=== PATIENT | female | born 1980 | race Hispanic/Latino ===

== ENCOUNTER 2017-09-04 20:44 | Inpatient (IN) | payer OTHER ==
[2017-09-04] MEDS ORDERED: Sodium Chloride 0.9% 1,000 ML IV STA (21:55)
[2017-09-04 22:19] LABS: BASO # 0.1 K/uL (0.0-0.2); BASO % 0.5 % (0.0-2.0); EOS % 0.1 % (0.0-4.0); HEMOGLOBIN 13.7 g/dL (12.0-16.0); LYMPH # 0.6 K/uL (1.0-4.3); LYMPH % 4.3 % (20.0-40.0); MEAN CELL VOLUME 92.5 fl (81.0-99.0); MEAN CORPUSCULAR HEMOGLOBIN 31.5 pg (27.0-31.0); MEAN CORPUSCULAR HGB CONC 34.1 g/dL (33.0-37.0); MONO # 0.7 K/uL (0.0-0.8); MONO % 5.1 % (0.0-10.0); NEUT # 13.2 K/uL (1.8-7.0); PLATELET COUNT 168 K/uL (130-400); RBC 4.35 Mil/uL (3.80-5.20); RED CELL DISTRIBUTION WIDTH 12.2 % (11.5-14.5); WHITE BLOOD COUNT 14.6 K/uL (4.8-10.8)
[2017-09-04 22:28] LABS: ALB/GLOB RATIO 1.3 (1.0-2.1); ALBUMIN 4.5 g/dL (3.5-5.0); ALT/SGPT 27 U/L (9-52); AST/SGOT 27 U/L (14-36); BLOOD UREA NITROGEN 5 mg/dl (7-17); CALCIUM 9.2 mg/dL (8.4-10.2); GFR AFRICAN-AMERICAN > 60; GFR NON-AFRICAN AMERICAN > 60; LIPASE 56 U/L (23-300)
[2017-09-04] MEDS ORDERED: Sodium Chloride 0.9% 100 ML ONE (22:35)
[2017-09-04] MEDS ORDERED: Iohexol 300 100 ML IJ ONE (22:35)
--- NOTE | 2017-09-04 22:54 | ED PDOC ---
HPI: Abdomen Time Seen by Provider: 09/04/17 21:11 Chief Complaint (Nursing): Abdominal Pain Chief Complaint (Provider): Periumbilical Pain History Per: Patient History/Exam Limitations: no limitations Onset/Duration Of Symptoms: Days (x2) Current Symptoms Are (Timing): Still Present Location Of Pain/Discomfort: Periumbilical Associated Symptoms: Diarrhea. denies: Loss Of Appetite Additional Complaint(s): 36 year old female presents to the ED complaining of gradual onset of constant crampy periumbilical pain associated with diarrhea which started 3 days ago after she ate samosas. Patient states that the diarrhea has since subsided, however the pain now radiates to the right groin area. Patient states she has a normal appetite. She went to [facility] today and was told she may have gastroenteritis. Denies fever, nausea, vomiting, urinary symptoms, vaginal discharge, or vaginal bleeding. Reports no h/o abdominal surgery. PMD: in [facility] Past Medical History Reviewed: Historical Data, Nursing Documentation, Vital Signs Vital Signs: Last Vital Signs Temp 100.9 F H 09/05/17 02:15 Pulse 97 H 09/05/17 02:15 Resp 20 09/05/17 02:15 BP 112/55 L 09/05/17 02:15 Pulse Ox 97 09/05/17 02:15 - Medical History Other PMH: on OCPs - Surgical History Surgical History: No Surg Hx - Family History Family History: States: Unknown Family Hx - Home Medications Home Medications: Ambulatory Orders Medication Instructions Recorded No Known Home Med 09/05/17 - Allergies Allergies/Adverse Reactions: Allergies Allergy/AdvReac Type Severity Reaction Status Date / Time No Known Allergies Allergy Verified 09/04/17 20:49 Review of Systems ROS Statement: Except As Marked, All Systems Reviewed And Found Negative Constitutional: Negative for: Fever Gastrointestinal: Negative for: Nausea, Vomiting Genitourinary Female: Negative for: Dysuria, Hematuria, Vaginal Discharge, Vaginal Bleeding Physical Exam - Reviewed Nursing Documentation Reviewed: Yes Vital Signs Reviewed: Yes - Physical Exam Comments: GENERAL APPEARANCE: Patient is awake, alert, oriented x 3, in mild painful distress. SKIN: Warm, dry; (-) cyanosis. EYES: (-) conjunctival pallor, (-) scleral icterus. ENMT: Mucous membranes moist. NECK: (-) tenderness, (-) stiffness, (-) lymphadenopathy. CHEST AND RESPIRATORY: (-) rales, (-) rhonchi, (-) wheezes; breath sounds equal bilaterally. HEART AND CARDIOVASCULAR: (-) irregularity; (-) murmur, (-) gallop. ABDOMEN AND GI: (-) distention. Bowel sounds active; (+) moderate tenderness in RLQ and suprapubic area, (-) guarding, (-) rebound, (-) palpable masses, (-) CVA tenderness. EXTREMITIES: (-) deformity, (-) edema, (+) distal pulses. NEURO AND PSYCH: Mental status as above; (-) focal findings. - Laboratory Results Result Diagrams: 09/04/17 22:07 09/04/17 22:07 - ECG O2 Sat by Pulse Oximetry: 100 (RA) Pulse Ox Interpretation: Normal Medical Decision Making Medical Decision Making: Initial Impression: Periumbilical pain Initial Plan: CT abd/pelvis CMP Lipase ED urine ED urine dipstick CBC Sodium chloride 1000mL IV Toradol 30mg IV Uhcg (-) Udip (-) Labs reviewed : WBC 14 with a L shift. CT A/P : FINDINGS: Lung bases: There is subpleural atelectasis of the dependent portions of the lungs. ABDOMEN: Liver: There is a simple left lobe hepatic cyst. There is a simple right lobe hepatic cyst. Gallbladder and bile ducts: The gallbladder is normal. There is no evidence of biliary ductal dilation. No calcified stones. Pancreas: The pancreas appears normal. No ductal dilation. Spleen: The spleen is normal. Adrenals: There is nonspecific calcification of the RIGHT adrenal gland. The left adrenal gland is normal. Kidneys and ureters: The kidneys appear normal. No hydronephrosis. Stomach and bowel: There is nonspecific thickening of several small bowel loops raising the possibility of concomitant enteritis. The stomach is normal. The duodenum is unremarkable. The colon is normal. No obstruction. PELVIS: Appendix: There is marked inflammatory stranding in the RIGHT lower quadrant with a distended tubular structure most consistent with the appendix measuring up to 13 mm in diameter suggestive of acute appendicitis. Bladder: The bladder is normal. Reproductive: The uterus is normal. ABDOMEN and PELVIS: Intraperitoneal space: There is a small amount of free pelvic fluid present. No free air. Bones/joints: No acute fracture. No dislocation. Soft tissues: Normal. Vasculature: Normal. No abdominal aortic aneurysm. Lymph nodes: Normal. No enlarged lymph nodes. IMPRESSION: 1. Severe acute appendicitis. 2. There is nonspecific thickening of several small bowel loops raising the possibility of concomitant enteritis. Dictated and Authenticated by: Renzo Sauceda MD 09/05/2017 12:21 AM Eastern Time ([place] & [place]) On re-evaluation, patient reports pain is controlled at this time, denies any nausea at this time and has no new complaints. On exam, patient remains AAOx3, in no acute distress. Diagnostic results d/w the patient in great detail. Diagnosis of acute appendicitis d/w the patient. Based on history, exam and diagnostic results, plan will be for inpatient admission. Surgery resident called and case discussed with Dr. Valentín Varghese, agrees with plan for admission under Dr. Raymond. Mariano TAYLOR ordered. Patient kept NPO. Patient states she fully agrees with and understands further plan of care. I have given the patient opportunity to ask any additional questions. Scribe Attestation: Documented by Andrea Spencer acting as a scribe for Marlene VINCENT. Provider Scribe Attestation: All medical record entries made by the Scribe were at my direction and personally dictated by me. I have reviewed the chart and agree that the record accurately reflects my personal performance of the history, physical exam, medical decision making, and the department course for this patient. I have also personally directed, reviewed, and agree with the discharge instructions and disposition Disposition - Clinical Impression Clinical Impression: Acute appendicitis - Patient ED Disposition Is Patient to be Admitted: Yes Counseled Patient/Family Regarding: Studies Performed, Diagnosis - Disposition Disposition Time: 00:00 Condition: STABLE
[2017-09-04 22:59] LABS: BANDS 3 % (0-2); LYMPHOCYTE 6 % (20-50); MONOCYTE 10 % (0-10); NEUTROPHIL 79 % (42-75); REACTIVE LYMPHOCYTES 2 % (0-0); TOTAL CELLS COUNTED 100
[2017-09-04 23:00] LABS: PLATELET ESTIMATE NORMAL (NORMAL)
[2017-09-05] MEDS ORDERED: Piperacillin/Tazobact 3.375 gm Inj IVPB ONE (01:09)
[2017-09-05] MEDS: Piperacillin/Tazobact 3.375 GM in Sodium Chloride 0.9% 100 ML IVPB SCH ×5 (01:15→21:00)
[2017-09-05] MEDS: Sodium Chloride 0.9% 1,000 ML IV SCH ×2 (01:16→16:35)
--- NOTE | 2017-09-05 01:53 | CP.PCM.HP ---
History of Present Illness - History of Present Illness History of Present Illness: H & P 36 F with no sig PMH came with abdominal pain started after eating samosa on Sunday. Pain is on the R side of the abd and radiates. Also reports diarrhea on Sun. Her also ate the same food on Sunday and had an episode of vomiting and became better. Pt went to [facility] and was diagnosed with gastroenteritis. Pt came to ED after worsening pain abd anorexia. Pt was planning on flying out to [facility] for a vacation but had to cancel for this. Denies fever, vomiting, CP, SOB, dysuria, hematuria, hematemesis, hematochezia. Pt was midely tachycardic 101. WBC is [address] shows acute appendicitis with possible enteritis. PMH none PSH : dental procedure LMP 3 weeks ago OB: 1 natural , epidural. SS non smoker, drinks occasionally, non drug abuser. Pt lives w her . Pt is a credit underwriter. Present on Admission - Present on Admission Any Indicators Present on Admission: No Review of Systems - Review of Systems Review of Systems: See HPI - Constitutional Constitutional: absent: Weight Loss Past Patient History - Past Social History Smoking Status: Never Smoked - PSYCHIATRIC Hx Substance Use: No - SURGICAL HISTORY Other/Comment: oral surgery Meds Allergies/Adverse Reactions: Allergies Allergy/AdvReac Type Severity Reaction Status Date / Time No Known Allergies Allergy Verified 09/04/17 20:49 Physical Exam - Constitutional Appears: Non-toxic - Head Exam Head Exam: ATRAUMATIC, NORMAL INSPECTION, NORMOCEPHALIC - Eye Exam Eye Exam: EOMI, Normal appearance, PERRL Pupil Exam: NORMAL ACCOMODATION, PERRL - ENT Exam ENT Exam: Mucous Membranes Moist, Normal Exam - Neck Exam Neck exam: Positive for: Normal Inspection - Respiratory Exam Respiratory Exam: NORMAL BREATHING PATTERN - Cardiovascular Exam Cardiovascular Exam: Tachycardia, REGULAR RHYTHM, +S1, +S2 - GI/Abdominal Exam GI & Abdominal Exam: Guarding, Soft, Tenderness. absent: Distended, Firm, Hernia, Mass, Rigid Additional comments: RLQ TTP - Exam Exam: NORMAL INSPECTION - Extremities Exam Extremities exam: Positive for: full ROM, normal inspection - Back Exam Back exam: NORMAL INSPECTION - Neurological Exam Neurological exam: Alert, CN II-XII Intact, Normal Gait, Oriented x3, Reflexes Normal - Psychiatric Exam Psychiatric exam: Normal Affect, Normal Mood - Skin Skin Exam: Dry, Intact, Normal Color, Warm Results - Vital Signs Recent Vital Signs: Last Vital Signs Temp 99.0 F 09/04/17 20:46 Pulse 90 09/05/17 01:34 Resp 12 09/05/17 01:34 BP 105/56 L 09/05/17 01:34 Pulse Ox 99 09/05/17 01:23 - Labs Result Diagrams: 09/04/17 22:07 09/04/17 22:07 Labs: Laboratory Results - last 24 hr 09/04/17 09/04/17 22:07 22:07 WBC 14.6 H RBC 4.35 Hgb 13.7 Hct 40.2 MCV 92.5 MCH 31.5 H MCHC 34.1 RDW 12.2 Plt Count 168 MPV 10.0 Neut % (Auto) 90.0 H Lymph % (Auto) 4.3 L [place] % (Auto) 5.1 Eos % (Auto) 0.1 Baso % (Auto) 0.5 Neut # (Auto) 13.2 H Lymph # (Auto) 0.6 L [place] # (Auto) 0.7 Eos # (Auto) 0.0 Baso # (Auto) 0.1 Neutrophils % (Manual) 79 H Band Neutrophils % 3 H Lymphocytes % (Manual) 6 L Reactive Lymphs % 2 H Monocytes % (Manual) 10 Platelet Estimate Normal RBC Morphology Normal Sodium 137 Potassium 4.3 Chloride 98 Carbon Dioxide 30 Anion Gap 13 BUN 5 L Creatinine 0.7 Est GFR ( Amer) > 60 Est GFR (Non-Af Amer) > 60 Random Glucose 117 H Calcium 9.2 Total Bilirubin 1.5 H AST 27 ALT 27 Alkaline Phosphatase 53 Total Protein 7.9 Albumin 4.5 Globulin 3.4 Albumin/Globulin Ratio 1.3 Lipase 56 Assessment & Plan - Assessment and Plan (Free Text) Assessment: Acute appendicitis triggered by enteritis WBC is [address] shows acute appendicitis with possible enteritis. NPO IVF WIll plan on OR for lap appy in AM ABX Pain/nausea control DVT/GI ppx Will WILLIAM Raymond
[2017-09-05 02:16] LABS: INR 1.2 (0.9-1.2); PARTIAL THROMBOPLASTIN TIME 30.2 Seconds (25.6-37.1); PROTHROMBIN TIME 13.8 Seconds (9.8-13.1)
[2017-09-05] MEDS ORDERED: HYDROmorphone 0.5 mg/0.5 ml ISec IVP PRN ×2 (08:00→10:32)
[2017-09-05] MEDS ORDERED: Lidocaine 4% (Laryng-O-Jet) Kit MM ONE (09:05)
[2017-09-05] MEDS ORDERED: Propofol 10 mg/ml Inj (20 ML) ONE (09:05)
[2017-09-05] MEDS ORDERED: Rocuronium 10 mg/ml (5 ml) ONE (09:05)
[2017-09-05] MEDS ORDERED: Succinylcholine 200 mg/10 ml Inj IV ONE (09:05)
[2017-09-05] MEDS ORDERED: Midazolam 2 MG/2 ML VIAL ONE (09:05)
[2017-09-05] MEDS ORDERED: Lactated Ringer's 1,000 ML IV ONE ×2 (09:09→09:57)
[2017-09-05] MEDS ORDERED: Bupivacaine HCl 0.25% PF (30 ml) Inj ONE (09:16)
[2017-09-05] MEDS ORDERED: Neostigmine 1:1000 (1 mg/ml) Inj ONE (10:00)
[2017-09-05] MEDS ORDERED: Dexamethasone 4 mg/1 ml IVP PRN (10:32)
--- NOTE | 2017-09-05 10:34 | PCM.SURG1 ---
Surgeon's Initial Post Op Note - Surgeon's Notes Surgeon: Dr. Michael Raymond Felt Hat Flanging Operator: Kely Bain, PGY-2 Type of Anesthesia: General Endo Anesthesia Administered By: Dr Valdez Pre-Operative Diagnosis: Acute appendicitis Operative Findings: See op report Post-Operative Diagnosis: Acute perforated appendicitis Operation Performed: Appendix Specimen/Specimens Removed: Appendix Estimated Blood Loss: EBL {In ML}: 5 Blood Products Given: N/A Drains Used: No Drains Post-Op Condition: Good Date of Surgery/Procedure: 09/05/17 Time of Surgery/Procedure: 10:34
--- NOTE | 2017-09-05 10:43 | CT ---
PROCEDURE: CT Abdomen and Pelvis with intravenous contrast. HISTORY: RLQ pain COMPARISON: None. TECHNIQUE: Contiguous axial images of the abdomen and pelvis. IV contrast given. Coronal and Sagittal reformats generated. Contrast is: 95 mL of Omnipaque 300 was given. Radiation dose: Total exam DLP = 505.06 mGy-cm. This CT exam was performed using one or more of the following dose reduction techniques: Automated exposure control, adjustment of the mA and/or kV according to patient size, and/or use of iterative reconstruction technique. FINDINGS: LOWER THORAX: Unremarkable. LIVER: Hypodensity in the right and left hepatic lobes are relatively simple fluid in attenuation and likely represent cysts. These are sub centimeter in size and remain suboptimally characterized. GALLBLADDER AND BILE DUCTS: Unremarkable. PANCREAS: Unremarkable. No mass. No ductal dilatation. SPLEEN: Unremarkable. No splenomegaly. ADRENALS: Calcification in the right adrenal gland most likely from prior infection or hemorrhage. KIDNEYS AND URETERS: Unremarkable. No stone or hydronephrosis. BLADDER: Grossly unremarkable. REPRODUCTIVE: Please note that evaluation of gynecologic organs is not optimal on CT imaging. APPENDIX: Inflamed appendix with periappendiceal stranding and fluid. No drainable fluid collection. Inflammation extends into the mesentery surrounding the terminal ileum and the cecum. BOWEL: No obstruction. Possible mild thickening of loops of small bowel raising the possibility of enteritis. PERITONEUM: Small amount of free fluid in the pelvis. LYMPH NODES: Mild reactive lymph nodes in the right lower quadrant. VASCULATURE: No aneurysmal dilatation within the visualized segments of the aorta. Dilated right gonadal vein. BONES: No fracture or destructive lesion. OTHER FINDINGS: None. IMPRESSION: Findings consistent with acute appendicitis with periappendiceal stranding. No localized fluid collection. Stranding extends into the surrounding soft tissues of the cecum and the terminal ileum. Possible enteritis. Possible hepatic cysts. Follow-up with ultrasound can be obtained as per clinical protocol. Other findings as above. Please note that this report is in general agreement with the preliminary report provided by Chelsy.
[2017-09-05] MEDS: Oxycodone/Acetaminophen 5/325 mg Tab PO PRN ×3 (14:01→23:23)
--- NOTE | 2017-09-06 02:30 | OP ---
PROCEDURE DATE: 09/05/2017 SURGEON: Michael Raymond M.D. LEGAL CLERK: Kely Bain, PGY-2. ANESTHESIOLOGIST: Dr. Valdez. TYPE OF ANESTHESIA: General endotracheal. PREOPERATIVE DIAGNOSIS: Acute appendicitis, enteritis. POSTOPERATIVE DIAGNOSIS: Acute perforated appendicitis, enteritis. FINDINGS: Perforated appendix. BLOOD LOSS: 5 mL. SPECIMEN: Appendix. DRAINS: None. COMPLICATIONS: None. DESCRIPTION OF PROCEDURE: Preoperatively, the patient was noted to have CAT scan findings consistent with acute appendicitis with periappendiceal stranding without adjacent fluid collection. Stranding extended into the surrounding soft tissues of the cecum and the terminal ileum with possible enteritis. On day of admission, pt had a leukocytosis of 14.3 and was febrile with a temperature of 100.9. Patient states that the abdominal pain started 3 days prior to admission after eating a samosa. Intraoperatively, a time-out was performed, the patient was identified by name, name of the procedure, laterality, the ervin, the consent form, and her wrist band. The abdomen was prepped with chlorhexidine. After waiting 3 minutes, the abdomen was draped. A supraumbilical incision was made after Marcaine was injected into the skin. The abdomen was then entered with a Veress needle in the umbilicus, inferior to the supraumbilical incision. The abdomen was insufflated with CO2 to a pressure of approximately 15. A Visiport was placed into the supraumbilical incision without issues. Circumferential observation was unremarkable. The tip of the appendix was found in the right lower quadrant. A suprapubic 5 and a left lower quadrant 5 mm port were placed to the point of election using a 10 mm scope. The tip of the appendix was brought up, it was seemed to be very inflamed with a small perforation noted near the base of the appendix. There was a moderate amount of purulent fluid in the pelvis and the peritoneal cavity. The mesentery was dissected off the appendiceal base with a [place] and a Harmonic scalpel. The distal ileum and cecum were identified. The mesentery was serially taken down close to the cecum. The appendiceal artery was identified and ligated using a Harmonic scalpel. The base of the appendix was again identified. Using a 5-mm scope, the appendix was pulled up and an Endo SHRUTHI was placed at the junction of the cecum and the base of the appendix. The Endo SHRUTHI was fired visualizing the tip of the Endo SHRUTHI prior to firing. The entire appendix was removed, placed in an Endo catch bag, and after some dilation of the umbilicus, the appendix was removed from the abdomen. Fluid was aspirated. The abdominal cavity was irrigated multiple times. There was very little bleeding. It was identified that there was no appendiceal stump and that there was a good seal. The CO2 was removed after evaluating the abdomen, which was benign. The umbilical fascia was closed with a UR6 suture with good approximation. The wound was injected with Marcaine, and subcuticular sutures were placed closing the umbilical, suprapubic, and the left lower quadrant incisions. The needle, sponge and instrument counts were declared to be correct. The patient was then taken to the recovery room in good condition. Kely Bain DO RAMIRO
[2017-09-06] MEDS: Piperacillin/Tazobact 3.375 GM in Sodium Chloride 0.9% 100 ML IVPB SCH ×4 (04:48→22:10)
[2017-09-06] MEDS: Oxycodone/Acetaminophen 5/325 mg Tab PO PRN ×4 (06:51→23:25)
--- NOTE | 2017-09-06 07:27 | CP.PCM.PN ---
Subjective - Date & Time of Evaluation Date of Evaluation: 09/06/17 Time of Evaluation: 07:24 - Subjective Subjective: General Surgery - DR Raymond Pt S&E. JAYE. Pt doing well post-operatively. She has mild incisional pain at surgical site. Pt ate dinner last night and has been ambulating. No nausea/ vomiting, fevers/chills, sob or chest pain. Objective - Vital Signs/Intake and Output Vital Signs (last 24 hours): Temp Pulse Resp BP Pulse Ox 99.0 F 108 H 20 100/60 96 09/06/17 05:00 09/06/17 05:00 09/06/17 05:00 09/06/17 05:00 09/06/17 05:00 - Medications Medications: Current Medications Acetaminophen (Tylenol 325mg Tab) 650 mg PO Q4 PRN PRN Reason: Fever >100.4 F Last Admin: 09/05/17 03:03 Dose: 650 mg Piperacillin Sod/Tazobactam (Sod 3.375 gm/ Sodium Chloride) 100 mls @ 100 mls/ hr IVPB Q6 SHAILESH PRN Reason: Protocol Last Admin: 09/06/17 04:48 Dose: 100 mls/hr Ondansetron HCl (Zofran Inj) 4 mg IVP Q4 PRN PRN Reason: Nausea/Vomiting Oxycodone/Acetaminophen (Percocet 5/325 Mg Tab) 1 tab PO Q4 PRN PRN Reason: Pain, severe (8-10) Stop: 09/08/17 12:23 Last Admin: 09/06/17 06:51 Dose: 1 tab Pantoprazole Sodium (Protonix Inj) 40 mg IVP DAILY [facility] Last Admin: 09/05/17 15:13 Dose: 40 mg - Labs Labs: 09/04/17 22:07 09/04/17 22:07 PT 13.8 Seconds (9.8-13.1) H 09/05/17 01:46 INR 1.2 (0.9-1.2) 09/05/17 01:46 APTT 30.2 Seconds (25.6-37.1) 09/05/17 01:46 - Constitutional Appears: No Acute Distress - Head Exam Head Exam: ATRAUMATIC, NORMAL INSPECTION, NORMOCEPHALIC - Eye Exam Eye Exam: Normal appearance - ENT Exam ENT Exam: Mucous Membranes Moist, Normal Exam - Respiratory Exam Respiratory Exam: NORMAL BREATHING PATTERN. absent: Respiratory Distress - Cardiovascular Exam Cardiovascular Exam: REGULAR RHYTHM - GI/Abdominal Exam GI & Abdominal Exam: Soft, Tenderness (appropriately). absent: Distended, Guarding, Rebound Additional comments: surgical incisions c/d/i with dermabond - Neurological Exam Neurological Exam: Alert, Oriented x3 - Psychiatric Exam Psychiatric exam: Normal Affect, Normal Mood - Skin Skin Exam: Dry, Intact Assessment and Plan - Assessment and Plan (Free Text) Assessment: 36 yo F w/ perforated appendicitis, s/p lap appendectomy POD #1 -Regular diet -Pain control prn -Continue IV Abx -F/U AM Labs -Pt may shower -Encourage OOB/Ambulation DW Dr Segundo Jane PGY4
[2017-09-06 08:37] LABS: HEMOGLOBIN 11.3 g/dL (12.0-16.0); MEAN CELL VOLUME 93.7 fl (81.0-99.0); MEAN CORPUSCULAR HEMOGLOBIN 32.1 pg (27.0-31.0); MEAN CORPUSCULAR HGB CONC 34.3 g/dL (33.0-37.0); RBC 3.52 Mil/uL (3.80-5.20)
[2017-09-06 08:42] LABS: BLOOD UREA NITROGEN 9 mg/dl (7-17); GFR AFRICAN-AMERICAN > 60; GFR NON-AFRICAN AMERICAN > 60
[2017-09-06] MEDS ORDERED: Potassium Chloride 20 mEq ER Tab PO ONE (09:22)
[2017-09-06] MEDS: Enoxaparin 40 mg Syringe SC SCH (10:46)
[2017-09-07] MEDS: Piperacillin/Tazobact 3.375 GM in Sodium Chloride 0.9% 100 ML IVPB SCH ×2 (05:19→09:09)
[2017-09-07] MEDS: Oxycodone/Acetaminophen 5/325 mg Tab PO PRN (07:17)
--- NOTE | 2017-09-07 07:39 | CP.PCM.DIS ---
Provider - Provider Date of Admission: 09/05/17 00:31 Attending physician: Michael Raymond MD Primary care physician: General surgery - Dr Raymond Consults: None Time Spent in preparation of Discharge (in minutes): 35 Diagnosis - Discharge Diagnosis (1) Status post laparoscopic appendectomy Status: Acute (2) Enteritis Status: Acute Hospital Course - Lab Results Lab Results: Most Recent Lab Values WBC 8.0 K/uL (4.8-10.8) 09/06/17 08:15 RBC 3.52 Mil/uL (3.80-5.20) L 09/06/17 08:15 Hgb 11.3 g/dL (12.0-16.0) L D 09/06/17 08:15 Hct 33.0 % (34.0-47.0) L 09/06/17 08:15 MCV 93.7 fl (81.0-99.0) 09/06/17 08:15 MCH 32.1 pg (27.0-31.0) H 09/06/17 08:15 MCHC 34.3 g/dL (33.0-37.0) 09/06/17 08:15 RDW 12.0 % (11.5-14.5) 09/06/17 08:15 Plt Count 130 K/uL (130-400) 09/06/17 08:15 MPV 10.0 fl (7.2-11.7) 09/04/17 22:07 Neut % (Auto) 90.0 % (50.0-75.0) H 09/04/17 22:07 Lymph % (Auto) 4.3 % (20.0-40.0) L 09/04/17 22:07 Delta % (Auto) 5.1 % (0.0-10.0) 09/04/17 22:07 Eos % (Auto) 0.1 % (0.0-4.0) 09/04/17 22:07 Baso % (Auto) 0.5 % (0.0-2.0) 09/04/17 22:07 Neut # (Auto) 13.2 K/uL (1.8-7.0) H 09/04/17 22:07 Lymph # (Auto) 0.6 K/uL (1.0-4.3) L 09/04/17 22:07 Delta # (Auto) 0.7 K/uL (0.0-0.8) 09/04/17 22:07 Eos # (Auto) 0.0 K/uL (0.0-0.7) 09/04/17 22:07 Baso # (Auto) 0.1 K/uL (0.0-0.2) 09/04/17 22:07 Neutrophils % (Manual) 79 % (42-75) H 09/04/17 22:07 Band Neutrophils % 3 % (0-2) H 09/04/17 22:07 Lymphocytes % (Manual) 6 % (20-50) L 09/04/17 22:07 Reactive Lymphs % 2 % (0-0) H 09/04/17 22:07 Monocytes % (Manual) 10 % (0-10) 09/04/17 22:07 Platelet Estimate Normal (NORMAL) 09/04/17 22:07 RBC Morphology Normal (NORMAL) 09/04/17 22:07 PT 13.8 Seconds (9.8-13.1) H 09/05/17 01:46 INR 1.2 (0.9-1.2) 09/05/17 01:46 APTT 30.2 Seconds (25.6-37.1) 09/05/17 01:46 Sodium 136 mmol/l (132-148) 09/06/17 08:15 Potassium 3.7 MMOL/L (3.6-5.0) 09/06/17 08:15 Chloride 104 mmol/L (98-107) 09/06/17 08:15 Carbon Dioxide 24 mmol/L (22-30) 09/06/17 08:15 Anion Gap 12 (10-20) 09/06/17 08:15 BUN 9 mg/dl (7-17) 09/06/17 08:15 Creatinine 0.9 mg/dl (0.7-1.2) 09/06/17 08:15 Est GFR ( Amer) > 60 09/06/17 08:15 Est GFR (Non-Af Amer) > 60 09/06/17 08:15 Random Glucose 99 mg/dL (65-105) 09/06/17 08:15 Calcium 8.0 mg/dL (8.4-10.2) L 09/06/17 08:15 Phosphorus 1.7 mg/dl (2.5-4.5) L 09/06/17 08:15 Magnesium 1.6 MG/DL (1.6-2.3) 09/06/17 08:15 Total Bilirubin 1.5 mg/dl (0.2-1.3) H 09/04/17 22:07 AST 27 U/L (14-36) 09/04/17 22:07 ALT 27 U/L (9-52) 09/04/17 22:07 Alkaline Phosphatase 53 U/L (38-126) 09/04/17 22:07 Total Protein 7.9 G/DL (6.3-8.2) 09/04/17 22:07 Albumin 4.5 g/dL (3.5-5.0) 09/04/17 22:07 Globulin 3.4 gm/dL (2.2-3.9) 09/04/17 22:07 Albumin/Globulin Ratio 1.3 (1.0-2.1) 09/04/17 22:07 Lipase 56 U/L (23-300) 09/04/17 22:07 Blood Type B POSITIVE 09/05/17 01:46 Blood Type Confirm B POSITIVE 09/05/17 18:10 Antibody Screen Negative 09/05/17 01:46 BBK History Checked No verified bt 09/05/17 01:46 - Hospital Course Hospital Course: 36 F with no sig PMH came with abdominal pain started after eating samosa on Sunday. Pain is on the R side of the abd and radiates. Also reports diarrhea on Sun. Her also ate the same food on Sunday and had an episode of vomiting and became better. Pt went to CT MD and was diagnosed with gastroenteritis. Pt came to ED after worsening pain abd anorexia. Pt was planning on flying out to [place] for a vacation but had to cancel for this. Denies fever, vomiting, CP, SOB, dysuria, hematuria, hematemesis, hematochezia. Pt was midely tachycardic 101. WBC is [address] shows acute appendicitis with possible enteritis. Pt admitted to surgery, taken to OR on hospital day 1. Pt was found to have perforated appendix with purulent fluid in pelvis. Pt kept for continued IV Abx due to perforation. Leukocytosis resolved. Pain well controlled. Pt tolerated procedure well. Pt ambulating, toelrating diet, voiding post op day 0. Pt stable and ready for d/c home on hospital day 2. Diagnoses: Perforated appendicitis s/p laparoscopic appendectomy enteritis - Date & Time of H&P Date of H&P: 09/05/17 Time of H&P: 01:46 Discharge Exam - Head Exam Head Exam: ATRAUMATIC, NORMAL INSPECTION, NORMOCEPHALIC - Eye Exam Eye Exam: EOMI, Normal appearance - ENT Exam ENT Exam: Mucous Membranes Moist, Normal Exam - Neck Exam Neck exam: Full Rom, Normal Inspection - Respiratory Exam Respiratory Exam: NORMAL BREATHING PATTERN, UNREMARKABLE - Cardiovascular Exam Cardiovascular Exam: REGULAR RHYTHM, +S1, +S2 - GI/Abdominal Exam GI & Abdominal Exam: Soft, Tenderness (minimal, over umbilical incision, suprapubic incision, and LLQ incisions- no erythema or drainage noted). absent : Distended, Firm, Guarding, Hernia - Extremities Exam Extremities exam: normal inspection - Neurological Exam Neurological exam: Alert, CN II-XII Intact, Oriented x3 - Psychiatric Exam Psychiatric exam: Normal Affect, Normal Mood - Skin Skin Exam: Dry, Intact, Normal Color, Warm Discharge Plan - Discharge Medications Prescriptions: Ciprofloxacin HCl [Cipro] 500 mg PO BID #10 tablet Docusate Sodium [Colace] 100 mg PO DAILY #5 capsule Metronidazole [Flagyl] 500 mg PO BID #10 tablet oxyCODONE/Acetaminophen [Percocet 5/325 mg Tab] 1 tab PO Q4 PRN #15 tab PRN Reason: Pain, Moderate (4-7) - Follow Up Plan Condition: STABLE Disposition: HOME/ ROUTINE Instructions: Appendicitis in Adults, Appendectomy, Laparoscopic Surgery Additional Instructions: No heavy lifting for 4-6 wks Do not sit in a hot tub, go swimming, or take a bath until the special glue falls off Ok to shower Do not pull the glue off your incisions, it will fall off on it's own Ok to resume normal diet Avoid alcohol while on oral antibiotics Do not drive or operate heavy machinery if on the pain medications Take stool softener if you take the pain medication as it can cause constipation please take all antibiotics as directed When you get back from [facility], please make an appointment to follow up with Dr. Raymond in his office Referrals: Michael Raymond MD [Staff Provider] -
--- NOTE | 2017-09-07 08:24 | PN ---
DATE: 09/06/2017 SUBJECTIVE: The patient was seen on the [facility], bed 1. The patient has a perforated appendicitis and is doing remarkably well. Vital signs are normal. White count is down to 8. The abdomen is soft. She is eating. If she is doing well tomorrow, we will consider transferring the patient home on oral antibiotics, Flagyl, and probably Augmentin. We will discuss in the morning. For now, she is doing very well. She is at risk for abscess. Michael Raymond MD
[2017-09-07] MEDS: Enoxaparin 40 mg Syringe SC SCH (09:00)
[2017-09-07 09:28] VITALS: RESP 18
[2017-09-07 12:54] VITALS: BP 118/85; PULSE 87; TEMP 98.8; O2SAT 99
== END 2017-09-07 14:20 | disposition home or self-care (01) | DRG 340 ==
LOC: H.ER 20:44 → H.ERHOLD 09-05 00:31 → H.PEDS 09-05 02:05
PROVIDERS: ADMIT Surgery; ATTEND Surgery
PROC: 0DTJ4ZZ Resection of Appendix, Percutaneous Endoscopic Approach (ICD-10-PCS; principal; 2017-09-05 10:00)
DX: K35.2 Acute appendicitis with generalized peritonitis (principal); K52.9 Noninfective gastroenteritis and colitis, unspecified